=== PATIENT | female | born 1955 | race American Indian/Alaskan Native ===

== ENCOUNTER 2021-12-13 08:55 | Outpatient (CLI) | payer MEDICARE, BC ==
--- NOTE | 2021-12-13 14:14 | Vascular Lab Report ---
ao/ivc/iliac duplex LTD INDICATION / CLINICAL INFORMATION: I71.4 ABDOMINAL AORTIC ANEURYSM,W/O RUPTURE. COMPARISON: None available. TECHNIQUE: Limited grayscale and color doppler imaging of the abdominal aorta, superior mesenteric ar jered, and celiac axis. FINDINGS: The proximal, mid, and distal abdominal aorta measures 2.6 cm, 2.2 cm, and 2.0 cm with velocities rashaad suring 94 cm/s, 90 cm/s, and 74 cm/s respectively. Mild atherosclerotic calcification is noted. The c ommon iliac arteries are patent measuring 1.1 cm on the right and 1.1 cm on the left. The superior mesenteric artery is patent with peak systolic velocities measuring up to 153 cm/s. The celiac axis also appears patent with velocities measuring up to 164 cm/s. IMPRESSION: 1. Visualized abdominal vasculature appears patent without evidence of stenosis. Scribed by: Nicole Weldon RDMS, HARVINDER, GISELLE Scribed: 12/13/2021 12:27 PM I have reviewed the images, agree with this report, and edited this report as needed. Signer Name: Beto Flynn MD Signed: 12/13/2021 2:09 PM Workstation Name: [id number]
== END 2021-12-13 08:56 | disposition home or self-care (01) ==
LOC: VAS 08:55
DX: I71.4 Abdominal aortic aneurysm, without rupture (principal)
CPT/HCPCS: 93979